=== PATIENT | male | born 1975 | race Caucasian/White ===

== ENCOUNTER → 2019-06-08 | Outpatient (CLI) | payer BC ==
[~2019-06-08] MED LIST: AMOCLA875 PO; HYDACE5; HYDACE5 PO; NAPR500 PO
== END | disposition home or self-care (01) ==
LOC: LAB SHORT 19:05 → LAB EV 19:05
DX: R31.9 Hematuria, unspecified (principal)
CPT/HCPCS: 87086

== ENCOUNTER 2020-01-06 11:00 | Day surgery (SDC) | payer BC ==
[~2020-01-06] VITALS: Ht 185.4 cm; Wt 112.1 kg
[~2020-01-06 11:00] MED LIST changes: +Mobic15 MG PO; +OMEPRAZOLE20 M1 PO
[2020-01-06] MEDS ORDERED: ASPIR PO (11:53)
[2020-01-06] MEDS ORDERED: LORCET 5-325 M1 EACH PO (11:55)
== END 2020-01-06 17:34 | disposition home or self-care (01) ==
LOC: ORSCMMR 11:00 → ORD 14:30 → ORSCMMR 17:34
PROVIDERS: Podiatrist Foot & Ankle Surgery
PROC: 0SSF04Z Reposition Right Ankle Joint with Internal Fixation Device, Open Approach (ICD-10-PCS; principal; 2020-01-06 14:15)
DX: S93.491A Sprain of other ligament of right ankle, initial encounter (principal); S82.64XA Nondisplaced fracture of lateral malleolus of right fibula, initial encounter for closed fracture; V86.56XA Driver of dirt bike or motor/cross bike injured in nontraffic accident, initial encounter; Z87.891 Personal history of nicotine dependence; Z79.82 Long term (current) use of aspirin; K21.9 Gastro-esophageal reflux disease without esophagitis; Z79.899 Other long term (current) drug therapy
CPT/HCPCS: C1713; J0690; J1100; J1885; J2250; J2405; J2704; J3010; J7120